=== PATIENT | male | born 1945 | race Caucasian/White ===

== ENCOUNTER 2020-01-07 20:19 | Inpatient (IN) | payer MEDICARE, OTHER ==
[2020-01-08] MEDS ORDERED: Acetaminophen 500 MG TAB PO PRN ×2 (06:10→17:14)
[2020-01-08] MEDS ORDERED: HYDROcodone/Acetaminophen 5/325 mg Tablet PO PRN (06:10)
[2020-01-08] MEDS ORDERED: Nitroglycerin 0.4 MG TAB (25 Tab Bottle) SL PRN (06:15)
[2020-01-08] MEDS ORDERED: FLU VACC TS2019-20(65YR UP)/PF 180 MCG/0.5 ML SYRINGE IM ONE (09:00)
[2020-01-08] MEDS ORDERED: Prevnar 13-Val Conj/PF 0.5 ML SYRINGE IM ONE (09:00)
[2020-01-08] MEDS: Mometasone/Formoterol 200/5 60 PUFF INH SCH ×2 (09:07→20:49)
[2020-01-08] MEDS: Aspirin 81 mg Enteric Coated Tablet PO SCH (09:09)
[2020-01-08] MEDS: Famotidine 20 MG TAB PO SCH (09:09)
[2020-01-08] MEDS: Amiodarone 200 MG TAB PO SCH (09:09)
[2020-01-08] MEDS: Tamsulosin HCl 0.4 MG CAP PO SCH (20:49)
[2020-01-09 05:59] LABS: #Basophils 0.1 thou/uL (0.0-0.2); #Eosinphils 0.2 thou/uL (0.0-0.7); #Lymphocytes 1.1 thou/uL (1.20-3.40); #Monocytes 0.7 thou/uL (0.11-0.59); #Neutrophils 9.4 thou/uL (1.40-6.50); %Basophils 0.7 % (0.0-1.0); %Eosinophils 1.9 % (0.0-10.0); %Lymphocytes 9.4 % (21.0-51.0); %Monocytes 5.8 % (0.0-10.0); %Neutrophils 82.2 % (42.0-75.0); Hemoglobin 9.9 g/dL (14.0-18.0); Mean Corpuscular HGB CONC 32.5 g/dL (32.0-36.0); Mean Corpuscular Hemoglobin 29.7 pg (27.0-31.0); Mean Corpuscular Volume 91.2 fL (78.0-98.0); Platelet Count 181 thou/uL (130-400); RBC Distribution Width 13.7 % (11.5-14.5); Red Blood Cell (RBC) Count 3.34 mill/uL (4.70-6.10); White Blood Cell (WBC) Count 11.4 thou/uL (4.8-10.8)
[2020-01-09] MEDS: Mometasone/Formoterol 200/5 60 PUFF INH SCH ×2 (06:03→18:55)
[2020-01-09] MEDS: Levothyroxine Sodium 50 MCG TAB PO SCH (06:05)
[2020-01-09 06:11] LABS: ALT (SGPT) 101 U/L (8-55); AST (SGOT) 63 U/L (5-34); Albumin 3.6 g/dL (3.4-4.8); Alkaline Phosphatase 60 U/L (40-110); Anion Gap 16 mmol/L (10-20); BUN (Urea Nitrogen) 43 mg/dL (8.4-25.7); Bilirubin, Total 0.3 mg/dL (0.2-1.2); Calc. Creatinine Clearance 21 mL/min (70-130); Calcium 8.4 mg/dL (7.8-10.44); Carbon Dioxide 21 mmol/L (23-31); Chloride 108 mmol/L (98-107); Estimated GFR-MDRD 13; Globulin 3.1 g/dL (2.4-3.5); Glucose 101 mg/dL (83-110); Potassium 3.9 mmol/L (3.5-5.1); Protein, Total 6.7 g/dL (5.8-8.1); Sodium 141 mmol/L (136-145)
[2020-01-09] MEDS: Aspirin 81 mg Enteric Coated Tablet PO SCH (08:56)
[2020-01-09] MEDS: Famotidine 20 MG TAB PO SCH (08:56)
[2020-01-09] MEDS: Amiodarone 200 MG TAB PO SCH (08:56)
[2020-01-09] MEDS: Tamsulosin HCl 0.4 MG CAP PO SCH (20:31)
[2020-01-10] MEDS: Mometasone/Formoterol 200/5 60 PUFF INH SCH ×2 (05:43→18:49)
[2020-01-10] MEDS: Levothyroxine Sodium 50 MCG TAB PO SCH (05:45)
[2020-01-10] MEDS: Famotidine 20 MG TAB PO SCH (10:18)
[2020-01-10] MEDS: Amiodarone 200 MG TAB PO SCH (10:18)
[2020-01-10] MEDS: Aspirin 81 mg Enteric Coated Tablet PO SCH (10:18)
[2020-01-10] MEDS: Tamsulosin HCl 0.4 MG CAP PO SCH (20:49)
[2020-01-11] MEDS: Levothyroxine Sodium 50 MCG TAB PO SCH (05:43)
[2020-01-11] MEDS: Mometasone/Formoterol 200/5 60 PUFF INH SCH ×2 (05:43→20:48)
[2020-01-11] MEDS: Aspirin 81 mg Enteric Coated Tablet PO SCH (09:20)
[2020-01-11] MEDS: Famotidine 20 MG TAB PO SCH (09:20)
[2020-01-11] MEDS: Amiodarone 200 MG TAB PO SCH (09:21)
[2020-01-11] MEDS: Tamsulosin HCl 0.4 MG CAP PO SCH (20:50)
[2020-01-11 21:21] VITALS: BMI 28.8
[2020-01-12] MEDS: Mometasone/Formoterol 200/5 60 PUFF INH SCH ×2 (05:46→18:42)
[2020-01-12] MEDS: Levothyroxine Sodium 50 MCG TAB PO SCH (05:47)
[2020-01-12 05:48] LABS: #Basophils 0.1 thou/uL (0.0-0.2); #Eosinphils 0.2 thou/uL (0.0-0.7); #Lymphocytes 1.1 thou/uL (1.20-3.40); #Monocytes 0.5 thou/uL (0.11-0.59); #Neutrophils 6.4 thou/uL (1.40-6.50); %Basophils 0.7 % (0.0-1.0); %Eosinophils 2.8 % (0.0-10.0); %Lymphocytes 12.8 % (21.0-51.0); %Monocytes 6.4 % (0.0-10.0); %Neutrophils 77.3 % (42.0-75.0); Hemoglobin 9.5 g/dL (14.0-18.0); Mean Corpuscular HGB CONC 31.8 g/dL (32.0-36.0); Mean Corpuscular Volume 91.1 fL (78.0-98.0); Platelet Count 162 thou/uL (130-400); RBC Distribution Width 13.4 % (11.5-14.5); Red Blood Cell (RBC) Count 3.28 mill/uL (4.70-6.10); White Blood Cell (WBC) Count 8.3 thou/uL (4.8-10.8)
[2020-01-12 05:58] LABS: ALT (SGPT) 57 U/L (8-55); AST (SGOT) 27 U/L (5-34); Albumin 3.6 g/dL (3.4-4.8); Alkaline Phosphatase 62 U/L (40-110); Anion Gap 12 mmol/L (10-20); BUN (Urea Nitrogen) 33 mg/dL (8.4-25.7); Bilirubin, Total 0.4 mg/dL (0.2-1.2); Calc. Creatinine Clearance 29 mL/min (70-130); Calcium 8.4 mg/dL (7.8-10.44); Carbon Dioxide 22 mmol/L (23-31); Chloride 108 mmol/L (98-107); Estimated GFR-MDRD 21; Globulin 3.1 g/dL (2.4-3.5); Glucose 101 mg/dL (83-110); Potassium 3.9 mmol/L (3.5-5.1); Protein, Total 6.7 g/dL (5.8-8.1); Sodium 138 mmol/L (136-145)
[2020-01-12] MEDS: Famotidine 20 MG TAB PO SCH (09:26)
[2020-01-12] MEDS: Aspirin 81 mg Enteric Coated Tablet PO SCH (09:26)
[2020-01-12] MEDS: Amiodarone 200 MG TAB PO SCH (09:27)
[2020-01-12] MEDS: Tamsulosin HCl 0.4 MG CAP PO SCH (20:47)
[2020-01-13] MEDS: Mometasone/Formoterol 200/5 60 PUFF INH SCH ×2 (06:02→18:45)
[2020-01-13] MEDS: Levothyroxine Sodium 50 MCG TAB PO SCH (06:03)
[2020-01-13] MEDS: Famotidine 20 MG TAB PO SCH (09:27)
[2020-01-13] MEDS: Amiodarone 200 MG TAB PO SCH (09:27)
[2020-01-13] MEDS: Aspirin 81 mg Enteric Coated Tablet PO SCH (09:27)
[2020-01-13] MEDS: Tamsulosin HCl 0.4 MG CAP PO SCH (20:46)
[2020-01-14] MEDS: Levothyroxine Sodium 50 MCG TAB PO SCH (05:54)
[2020-01-14] MEDS: Mometasone/Formoterol 200/5 60 PUFF INH SCH (05:54)
[2020-01-14] MEDS: Aspirin 81 mg Enteric Coated Tablet PO SCH (09:22)
[2020-01-14] MEDS: Amiodarone 200 MG TAB PO SCH (09:22)
[2020-01-14] MEDS: Famotidine 20 MG TAB PO SCH (09:22)
[2020-01-14] MEDS: Tamsulosin HCl 0.4 MG CAP PO SCH (20:55)
[2020-01-15] MEDS: Mometasone/Formoterol 200/5 60 PUFF INH SCH ×2 (00:33→06:01)
[2020-01-15 05:54] LABS: Anion Gap 13 mmol/L (10-20); BUN (Urea Nitrogen) 28 mg/dL (8.4-25.7); Calc. Creatinine Clearance 33 mL/min (70-130); Calcium 8.9 mg/dL (7.8-10.44); Carbon Dioxide 23 mmol/L (23-31); Chloride 108 mmol/L (98-107); Estimated GFR-MDRD 24; Glucose 88 mg/dL (83-110); Sodium 140 mmol/L (136-145)
[2020-01-15 05:56] VITALS: BP 146/69; TEMP 98.1
[2020-01-15] MEDS: Levothyroxine Sodium 50 MCG TAB PO SCH (06:04)
[2020-01-15] MEDS: Aspirin 81 mg Enteric Coated Tablet PO SCH (09:14)
[2020-01-15] MEDS: Famotidine 20 MG TAB PO SCH (09:14)
[2020-01-15] MEDS: Amiodarone 200 MG TAB PO SCH (09:14)
--- NOTE | 2020-01-16 10:10 | DIS ---
DATE OF ADMISSION: 01/07/2020 DATE OF DISCHARGE: 01/15/2020 ADMISSION DIAGNOSES: Status post sigmoid colectomy with ileostomy placement due to history of colovesical fistula, acute kidney injury on chronic kidney disease, paroxysmal atrial fibrillation and physical deconditioning. SECONDARY DIAGNOSES: Chronic obstructive pulmonary disease, BPH, hypothyroidism , and chronic diastolic heart failure. PROCEDURES: None. HOSPITAL COURSE: A 74-year-old male, who transitioned here status post admission at [facility], where he had undergone a sigmoid colectomy with ileostomy placement secondary to colovesical fistula. The patient experienced postoperative complications including acute renal failure and atrial fibrillation. He was consulted by Nephrology and Cardiology for these issues and optimized with medical therapy. Secondary to the patient's underlying physical deconditioning , he transitioned here for physical therapy, occupational therapy, and further education pertaining to care of his ileostomy. While here, the patient had no significant setbacks and steadily improved in regard to his functional status. He feels comfortable with taking care of his ileostomy and has been set up with the appropriate supplies. His renal function has steadily improved throughout his stay as his initial creatinine here on 01/09/2020, was 4.37 and as of today on 01/15/2020, it is down to 2.61. Subsequently, his GFR over this timeframe has improved from 13 to 24. He has remained rate controlled and in normal sinus rhythm otherwise. Secondary to the patient's improvement, he is now appropriate for discharge home at this time, where he lives in [place] with his and daughter. DISPOSITION: The patient will discharge home and has been set up with [facility] for further continuity of care. He has been encouraged to follow up with his primary care provider, Abimbola Stevenson next week. He is to follow up with General Surgery, Dr. Velazquez in approximately one month and with Nephrology, Dr. Patel around the same time. DISCHARGE MEDICATIONS: Include, 1. Levothyroxine 75 mcg p.o. daily. 2. Aspirin 81 mg p.o. daily. 3. DuoNeb q.6 hours p.r.n. 4. Amiodarone 200 mg p.o. daily. 5. Advair 250/50 one puff daily. 6. Sertraline 50 mg p.o. daily. 7. Tamsulosin 0.4 mg at bedtime. Job ID: [id number] [facility]
== END 2020-01-15 11:00 | disposition home or self-care (01) | DRG 949 ==
LOC: BURMED 20:19
PROVIDERS: ADMIT Family Medicine; ATTEND Family Medicine
DX: Z48.815 Encounter for surgical aftercare following surgery on the digestive system (principal); N17.9 Acute kidney failure, unspecified; G93.40 Encephalopathy, unspecified; I50.32 Chronic diastolic (congestive) heart failure; Z43.2 Encounter for attention to ileostomy; N40.0 Benign prostatic hyperplasia without lower urinary tract symptoms; J44.9 Chronic obstructive pulmonary disease, unspecified; R53.81 Other malaise; E03.9 Hypothyroidism, unspecified; F32.9 Major depressive disorder, single episode, unspecified; I25.10 Atherosclerotic heart disease of native coronary artery without angina pectoris; Z85.3 Personal history of malignant neoplasm of breast; Z83.3 Family history of diabetes mellitus; Z82.3 Family history of stroke; Z90.49 Acquired absence of other specified parts of digestive tract; I48.0 Paroxysmal atrial fibrillation; N18.9 Chronic kidney disease, unspecified
CPT/HCPCS: 36415; 80048; 80053; 85025; 94664; J7620